=== PATIENT | female | born 1955 | race Caucasian/White ===

== ENCOUNTER 2019-01-29 08:51 | Emergency (ER) | payer BC ==
[~2019-01-29] VITALS: Ht 170.2 cm; Wt 80.0 kg
[2019-01-29 09:35] LABS: HEMATOCRIT 40.2 % (37.0-47.0); IMMATURE GRANULOCYTES 0.3 % (0.0-5.0); MEAN CELL VOLUME 85.5 fL CALC (80.0-100.0); MEAN CORPUSCULAR HGB 27.7 pG CALC (26.0-32.0); MEAN CORPUSCULAR HGB CONC 32.3 g/L CALC (32.0-36.0); NEUT# 9.53 thou/uL (2.00-7.15); RED BLOOD COUNT 4.7 mill/uL (4.20-5.60); RED CELL DISTRI WIDTH 13.6 % (11.5-15.5)
[2019-01-29] MEDS ORDERED: METFORMIN500 MG PO (09:39)
[2019-01-29] MEDS ORDERED: SIMVASTATIN10 MG PO (09:41)
[2019-01-29] MEDS ORDERED: LEVEMIR100 UNIT/M SC (09:41)
[2019-01-29] MEDS ORDERED: ATENOLOL100 MG PO (09:42)
[2019-01-29] MEDS ORDERED: LISINOPRIL20 M1 PO (09:42)
[2019-01-29 09:43] LABS: ANION GAP 15 (6-22 (CALC)); BUN 11 mg/dL (8-23); BUN/CREATININE RATIO 18 (12-20 (CALC)); CARBON DIOXIDE 26 mmol/l (22-30); CHLORIDE 103 mmol/l (95-108); CREATININE 0.6 mg/dL (0.5-1.0); GFR > 60 ML/MIN (>=60 (CALC)); GFR FOR AFR.AMER. > 60 ML/MIN (>=60 (CALC)); LIPASE 145 u/l (23-300); POTASSIUM 4.7 mmol/l (3.5-5.1); SODIUM 139 mmol/l (137-146)
[2019-01-29] MEDS ORDERED: OMEPRAZOLE20 MG PO (09:43)
[2019-01-29] MEDS ORDERED: XANAX0.25 MG PO (09:43)
[2019-01-29 10:40] VITALS: BP 156/49
== END 2019-01-29 11:06 | disposition home or self-care (01) | DRG 392 ==
LOC: ED 08:51
PROVIDERS: Family Medicine
DX: R19.7 Diarrhea, unspecified (principal); R10.84 Generalized abdominal pain; I10 Essential (primary) hypertension; E11.9 Type 2 diabetes mellitus without complications